=== PATIENT | female | born 1985 | race Two or more races ===

== ENCOUNTER 2018-09-20 12:58 | Emergency (ER) | payer OTHER ==
[~2018-09-20] VITALS: Ht 165.1 cm; Wt 90.7 kg
[~2018-09-20 12:58] MED LIST: ACIDOPHILUS1 EAC3 PO; ALLEGRA-D 24 H1 EACH PO; AMOX1TAB12 PO
[2018-09-20] MEDS ORDERED: NIKKI 3 MG-0.01 EACH (15:27)
[2018-09-20] MEDS ORDERED: PNEU16DI2 (15:27)
== END 2018-09-20 16:34 | disposition home or self-care (01) ==
LOC: ER 12:58
DX: M54.5 Low back pain (principal)